=== PATIENT | female | born 1950 | race Caucasian/White ===

== ENCOUNTER 2020-05-25 16:54 | Emergency (ER) | payer OTHER ==
[~2020-05-25 16:54] MED LIST: LEVAQUIN750 MG PO
[2020-05-25 17:28] LABS: HEMOGLOBIN 15.6 gm/dl (12.3-15.3); RED BLOOD COUNT 5.16 M/UL (4.00-5.10); WHITE BLOOD COUNT 8.8 K/UL (4.5-11.0)
[2020-05-25 17:58] LABS: BUN/CREATININE RATIO 15 (0-10)
[2020-05-25] MEDS ORDERED: ONDANSETRON ODT4 MG SL (20:34)
[2020-05-25] MEDS ORDERED: PROTONIX40 MG PO (20:34)
[2020-05-25] MEDS ORDERED: CARAFATE 1 GM TA1 GM PO (20:34)
== END 2020-05-25 21:17 | disposition home or self-care (01) ==
LOC: ER1 16:54
PROVIDERS: Family Medicine
DX: K80.20 Calculus of gallbladder without cholecystitis without obstruction (principal); K76.0 Fatty (change of) liver, not elsewhere classified; R79.89 Other specified abnormal findings of blood chemistry; F17.210 Nicotine dependence, cigarettes, uncomplicated
CPT/HCPCS: 80053; 81001; 83605; 83690; 84484; 85025; 93005; 96374; 96375; 99284; C9113; J1885; J2405; Q9967